=== PATIENT | female | born 1990 | race African-American/Black ===

== ENCOUNTER 2020-05-19 17:36 | Emergency (ER) | payer SELFPAY ==
[2020-05-19] MEDS ORDERED: ACETAMINOPHEN 325 MG TABLET (FP) PO ONE (17:41)
--- NOTE | 2020-05-19 17:43 | PDOC ---
History of Present Illness - General Chief Complaint: Injury Stated Complaint: INJURED LEFT FOOT ON WATER SLIDE YESTERDAY Time Seen by Provider: 05/19/20 17:39 History Source: Patient Exam Limitations: No Limitations - History of Present Illness Initial Comments: Cindy is a 29 yo F who denies having any pmh who presents to the [facility] with intense left foot pain around her big toe after injuring her foot yesterday at [facility]. She rates her foot/toe pain as 9/10 when she tries to walk on it. Denies pain at rest or baseline. Pain does not radiate. She states she was trying to get onto a raft when all of a sudden she bumped her foot into a metal step and instantly felt pain. States she feels everything in her foot/toe normally. She states she can move the first toe but it is exceedingly painful. Denies fevers, chills, nausea, vomiting, headache, ankle pain, loss of sensation. LMP: Currently on it PCP: Doctor in [place] PSH: None reported Social Hx: Denies smoking, drinking, or other substance abuse Allergies: NKA, NKDA Past History - Medical History Allergies/Adverse Reactions: Allergies Allergy/AdvReac Type Severity Reaction Status Date / Time No Known Allergies Allergy Unverified 05/19/20 17:38 Home Medications: Ambulatory Orders Clindamycin [Cleocin -] 450 mg PO Q8H 7 Days #63 capsule 05/19/20 Review of Systems - Review of Systems Able to Perform ROS?: Yes Comments:: CONSTITUTIONAL: Absent: fever, no chills, no fatigue EYES: Absent: visual changes ENT: Absent: ear pain, no sore throat CARDIOVASCULAR: Absent: chest pain, no palpitations RESPIRATORY: Absent: cough, no SOB GI: Absent: abdominal pain, no nausea, no vomiting, no constipation, no diarrhea GENITOURINARY: Absent: dysuria, no frequency, no hematuria MUSKULOSKELETAL: Present: Arthralgia Absent: back pain, no myalgia SKIN: Absent: rash NEURO: Absent: headache *Physical Exam - Physical Exam GENERAL: Well-appearing, well-nourished. No apparent distress. HEENT: Normocephalic, atraumatic. PERRL, EOM intact. CARDIOVASCULAR: Normal S1, S2. Regular rate and rhythm. PULMONARY: No evidence of respiratory distress. Lungs clear to auscultation bilaterally. No wheezing, rales or rhonchi. ABDOMEN: Soft, non-distended, non-tender. EXTREMITIES: Normal ROM in all four extremities. No gross deformities. LEFT FOOT: There is exquisite tenderness around the dorsal aspect of the 1st toe. The 1st toe is swollen and has a small abrasion on top of it. passive flexion of her 1st toe causes significant distress. SKIN: Warm, dry. No rash NEUROLOGICAL: No focal neurological deficits. Procedures - Splinting Splint Location: Left: Foot Pre-Proc Neuro Vasc Exam: normal Hand-Made Type: orthoglass Splint Type: Yes: Posterior, Short Leg Post-Proc Neuro Vasc Exam: normal Gerardo Bandage: yes, 3" Sling: No Complications: No ED Treatment Course - RADIOLOGY Radiology Studies Ordered: Category Date Time Status FOOT-LEFT [RAD] Stat Radiology 05/19/20 17:40 Ordered TOE(S) LEFT [RAD] Stat Radiology 05/19/20 17:40 Ordered Medical Decision Making - Medical Decision Making Cindy is a 29 yo F who denies having any pmh who presents to the [facility] with intense left foot pain around her big toe after injuring her foot yesterday at [facility]. She rates her foot/toe pain as 9/10 when she tries to walk on it. Denies pain at rest or baseline. Pain does not radiate. She states she was trying to get onto a raft when all of a sudden she bumped her foot into a metal step and instantly felt pain. States she feels everything in her foot/toe normally. She states she can move the first toe but it is exceedingly painful. Denies fevers, chills, nausea, vomiting, headache, ankle pain, loss of sensation. Vital Signs Temp Pulse Resp BP Pulse Ox 98.5 F 77 16 116/80 100 05/19/20 17:38 05/19/20 17:38 05/19/20 17:38 05/19/20 17:38 05/19/20 17:38 DDx IBNLT: Broken Toe, foot injury, bad sprain/strain, tetanus Plan: XR, analgesia, ice, update tetanus, flat shoe, gerardo bandage, crutches, ortho FU XR: phalax fracture, non-displaced - Posterior short leg splint applied - gerardo bandage - ICE - Crutches - Flat shoe - Clindamycin for abrasion/swollen toe - Tetanus updated - Ortho FU - Ibuprofen for pain control - Return precautions The patient appears clinically sober, has no evidence of clinical intoxication, is A&O x4, has no sustained nystagmus, and appears to be capable and have capacity to make reasonable decisions. The patient states they are currently in the emergency department, knows who the president is, states the correct time, correct day, and correct month. The patient is ambulatory in ER and has walked around the nursing station multiple times with a straight and steady gait, and is not ataxic. Tolerating PO well, ate a sandwich and drank juice. Denies having any SI or HI. Patient states will not be driving home. I discussed the physical exam findings, ancillary test results and final diagnoses with the patient. I answered all of the patient's questions. The patient was satisfied with the care received and felt comfortable with the discharge plan and treatment plan. The patient will call their primary care physician within 24 hours to arrange follow-up and will return to the Emergency Department with any new, persistent or worsening symptoms. Please note, this clinical encounter is taking place during a federal and state health care emergency attributable to the novel Foster Virus pandemic. The [place] of the Department of Health and Human Services has declared, pursuant to the Public Health Service Act 319F-3 (42 U.S.C. 247d-6d), that a covered persons activities related to medical countermeasures against COVID-19 will be immune from liability under Federal and State law. Discharge - Discharge Information Problems reviewed: Yes Clinical Impression/Diagnosis: Phalanges fracture, foot Qualifiers: Encounter type: initial encounter Toe: great toe Fracture type: closed Phalanx: unspecified phalanx Fracture alignment: nondisplaced Laterality: left Qualified Code(s): S92.405A - Nondisplaced unspecified fracture of left great toe, initial encounter for closed fracture Condition: Stable Disposition: HOME - Admission No - Additional Discharge Information Prescriptions: Clindamycin [Cleocin -] 450 mg PO Q8H 7 Days #63 capsule - Follow up/Referral Referrals: Vinicio Torres MD [Staff Physician] - Aguila Marcial MD [Staff Physician] - Carter,Tanner A, DO [Staff Physician] - - Patient Discharge Instructions Patient Printed Discharge Instructions: DI for Toe Fracture, DI for Foot Fracture Additional Instructions: You came into the ER with toe pain. We did an x-ray which showed a fracture so we placed a splint on your foot. Please follow up with the orthopedist in the next 7 to 10 days. Come back to the ER immediately if your toe becomes extremely pain, starts getting, red or if you have any concerns for a foot infection. We sent an antibiotic to your pharmacy, please go and pick it up and take 450 mg of clindamycin 3 times daily for the next 7 days You must return to the Emergency Department with any new complaints, if your symptoms persist and do not improve or if you develop any other new or worsening concerns. As discussed, please call to follow up with your Primary Care physician in 1-2 days to discuss what happened to you in the emergency room, and make sure you are being looked after and taken care of. Your emergency room visit is not complete without this follow up appointment. Please read the attached handouts for further information about your ER visit and what you should do moving forward. Thank you for coming to the [facility]. We hope you feel better soon! Print Language: KINYARWANDA - Post Discharge Activity
[2020-05-19] MEDS ORDERED: DIPHTH,PERTUSS(ACELL),TET 0.5 ML DISP.SYRIN IM ONE ×2 (17:45→17:49)
[2020-05-19] MEDS ORDERED: ACETAMINOPHEN 500 MG TABLET (FP) ONE (17:48)
[2020-05-19 18:03] VITALS: BP 116/80; PULSE 77; TEMP 98.5; BMI 30.2
--- NOTE | 2020-05-19 18:03 | PDOC ---
Attending Attestation - Resident Resident Name: Erinn Paceian - ED Attending Attestation I have performed the following: I have examined & evaluated the patient, The case was reviewed & discussed with the resident, I agree w/resident's findings & plan, Exceptions are as noted - HPI HPI: 05/19/20 17:52 29yo female with Left big toe pain. Pt was at the [facility] yesterday when she was getting on a ride and hit her foot on the metal stair. Pt with a small wound to the anterior aspect of the big toe and soft tissue swelling. No active bleeding. Pt with pain along the distal end of the first metatarsal and the phalanges of the big toe. Pt denies ankle or knee pain. Tetanus is not up to date. Pt is currently menstruating. Pt c/o pain to the big toe on the L. - Physicial Exam PE: 05/19/20 18:03 ext: L ankle is stable, neg anterior drawer, no ttp over the 5th metatarsal, ttp over 1st metatarsal and phalanges small avulsion wound to the anterior aspect of the proximal 1st phalange, soft tissue swelling and ttp, no drainage from the wound, no bleeding. pulses intact, brisk cap refill, sensation intact - Medical Decision Making 05/19/20 18:11 a/p: 29yo female with L big toe injury -concern for metatarsal and phalange fx -xray ordered -pt is currently menstruating -tylenol and tetanus for pain -ice -will monitor and reassess 05/19/20 18:20 pt with a fracture of the proximal phalange with poss extension into the joint will need abx will splint will need ortho follow up will need abx 05/19/20 18:37 pt has been placed in a splint by the resident, stable for dc to home will need orthopedic follow up Discharge - Discharge Information Problems reviewed: Yes Clinical Impression/Diagnosis: Phalanges fracture, foot Condition: Stable - Admission No - Follow up/Referral Referrals: Tanner Carter DO [Staff Physician] - Vinicio Torres MD [Staff Physician] - Aguila Marcial MD [Staff Physician] - - Patient Discharge Instructions Patient Printed Discharge Instructions: DI for Toe Fracture, DI for Foot Fracture - Post Discharge Activity
== END 2020-05-19 18:59 | disposition home or self-care (01) ==
LOC: FER 17:36
PROC: 2W3RX1Z Immobilization of Left Lower Leg using Splint (ICD-10-PCS; principal; 2020-05-19)
PROC: 3E0234Z Introduction of Serum, Toxoid and Vaccine into Muscle, Percutaneous Approach (ICD-10-PCS; 2020-05-19)
DX: S92.405A Nondisplaced unspecified fracture of left great toe, initial encounter for closed fracture (principal)
CPT/HCPCS: 73630-TC-LT; 73660-TC-LT-FY; 90715; 99284-25